=== PATIENT | male | born 1995 | race Caucasian/White ===

== ENCOUNTER 2018-07-16 15:35 | Emergency (ER) | payer OTHER ==
[~2018-07-16] VITALS: Ht 182.9 cm; Wt 69.3 kg
[2018-07-16 16:27] LABS: HEMATOCRIT 40.4 % (38.0-50.0); HEMOGLOBIN 13.7 G/DL (12.5-16.6); MCH 30.9 PG (29.0-34.0); MCHC 33.9 G/DL (30.0-36.0); PLATELET COUNT 189 K/uL (156-360); RBC DIS.WIDTH-CV 13.2 % (11.8-14.6); RBC DIS.WIDTH-SD 44.1 % (39-53); RED BLOOD COUNT 4.44 M/uL (4.00-5.50)
[2018-07-16 16:35] LABS: ALBUMIN 4.5 g/dL (3.2-4.8)
[2018-07-16 16:36] LABS: CHLORIDE 103 mEq/L (99-109); POTASSIUM 4.3 mEq/L (3.7-5.4); SODIUM 140 mEq/L (136-147)
[2018-07-16 16:38] LABS: GLUCOSE 89 mg/dL (70-99); TOTAL PROTEIN 7.6 g/dL (6.4-8.3)
[2018-07-16 16:40] LABS: TOTAL BILIRUBIN 0.3 mg/dL (0.0-1.0)
[2018-07-16 16:41] LABS: ALKALINE PHOSPHATASE 78 IU/L (3-129)
[2018-07-16 16:42] LABS: CREATININE 0.9 mg/dL (0.6-1.3); GFR ESTIMATE (CALCULATED) > 59 mL/min/ (58.99-99999)
[2018-07-16 16:43] LABS: AST (GOT) 33 IU/L (2-34); UREA NITROGEN (BUN) 17 mg/dL (9-23)
[2018-07-16 16:45] LABS: ALT (GPT) 66 IU/L (3-49)
[2018-07-16] MEDS ORDERED: METHADONE1 MG/1 ML PO (18:07)
[2018-07-16 18:09] LABS: APPEARANCE CLEAR ((CLEAR)); BILIRUBIN NEGATIVE; BLOOD NEGATIVE; COLOR YELLOW ((YELLOW)); GLUCOSE (STRIP) NEGATIVE; KETONES NEGATIVE; LEUKOCYTES NEGATIVE; NITRITE NEGATIVE; PROTEIN (STRIP) NEGATIVE; SPECIFIC GRAVITY 1.053 (1.000-1.030); UCUL ADDED? NO
[2018-07-16] MEDS ORDERED: MOTRIN800 MG PO (18:24)
[2018-07-16] MEDS ORDERED: TRAZODONE HCL50 MG PO (18:24)
[2018-07-16 18:56] VITALS: BP 129/58
== END 2018-07-16 18:57 | disposition home or self-care (01) ==
LOC: EME 15:35 → RME 15:35
PROVIDERS: Physician Assistant
DX: S01.01XA Laceration without foreign body of scalp, initial encounter (principal); S06.0X9A Concussion with loss of consciousness of unspecified duration, initial encounter; S30.810A Abrasion of lower back and pelvis, initial encounter; S40.212A Abrasion of left shoulder, initial encounter; S00.411A Abrasion of right ear, initial encounter; S40.812A Abrasion of left upper arm, initial encounter; S40.811A Abrasion of right upper arm, initial encounter; S80.211A Abrasion, right knee, initial encounter; M54.2 Cervicalgia; R10.9 Unspecified abdominal pain; V13.4XXA Pedal cycle driver injured in collision with car, pick-up truck or van in traffic accident, initial encounter; Z48.02 Encounter for removal of sutures; Z72.0 Tobacco use
CPT/HCPCS: 70450; 72040; 74177; 80053; 81003; 85027; 99281; 99284